=== PATIENT | male | born 2000 | race Caucasian/White ===

== ENCOUNTER 2018-05-06 17:31 | Emergency (ER) | payer MEDICAID, SELFPAY, OTHER ==
[2018-05-06] MEDS ORDERED: ISOVUE-370 76% 100ML VIAL (Q9967) As Ordered ×2 (18:26)
[2018-05-06] MEDS: NS 1,000 ML IV ×2 (20:47)
[2018-05-06] MEDS: KETOROLAC 30 MG/ML VIAL (J1885) IV ×2 (20:48)
== END 2018-05-06 22:39 | disposition home or self-care (01) ==
LOC: M ED 17:31
DX: M54.2 Cervicalgia (principal); W17.89XA Other fall from one level to another, initial encounter; Y92.59 Other trade areas as the place of occurrence of the external cause; Y99.0 Civilian activity done for income or pay; Z88.8 Allergy status to other drugs, medicaments and biological substances
CPT/HCPCS: Q9967